=== PATIENT | female | born 1935 | race Caucasian/White ===

== ENCOUNTER → 2020-05-28 10:46 | Outpatient (CLI) | payer MEDICARE, SELFPAY ==
--- NOTE | 2020-05-28 10:55 | XR_ITS ---
PROCEDURE: XR ANKLE RT MIN 3V CLINICAL INDICATION: R FOOT PAIN COMPARISON: No exams were available for comparison FINDINGS: No fracture or dislocation. No lytic or blastic change. There is normal mineralization. The joint spaces are well-preserved. No significant degenerative/arthritic changes. No erosive changes evident. Other findings:Clips are present along the lower leg anteriorly IMPRESSION: No acute findings. Dictated by: Rafiq Shultz MD 05/28/2020 14:15 Electronically signed by Rafiq Shultz MD in [place] 05/28/2020 14:15
== END ==
PROVIDERS: PCP Family Medicine; Visit Provider Family Medicine
DX: M79.671 Pain in right foot (principal)
CPT/HCPCS: 73610

== ENCOUNTER → 2021-04-29 11:07 | Outpatient (CLI) | payer MEDICARE, SELFPAY ==
--- NOTE | 2021-04-29 11:51 | CT_ITS ---
PROCEDURE: CT ABDOMEN PELVIS WO/W CON CLINICAL INDICATION: LLQ ABD TENDERNESS, LLQ ABD PAIN COMPARISON: No exams were available for comparison TECHNIQUE: IV Contrast: 75ML Isovue 370 Oral Contrast None Axial images obtained with sagittal and coronal reformats. All CT scans at the facility use one or more dose reduction, viz: automated exposure control, ma/kV adjustment per patient size (including targeted exams where dose is matched to indication, i.e. head), or iterative reconstruction technique. FINDINGS: LOWER THORAX: There are mild atelectatic or fibrotic changes in the right middle lobe ABDOMEN & PELVIS: The liver, spleen, adrenal glands, and pancreas have an unremarkable appearance. Status post cholecystectomy. There is mild biliary ectasia with common bile duct measuring 7 mm and the common hepatic duct at 11 mm and could be due to reservoir effect from the prior cholecystectomy. There is an 8 mm hyperdense nodule along the posterior aspect of the right kidney which is indeterminate measuring 60 Hounsfield units. There are bilateral renal cysts. The largest cystic area projects along the medial aspect of the left kidney superiorly measuring 4.4 x 1.8 cm. No renal or ureteral calculi. No hydronephrosis. The no intestinal obstruction or free air is evident. No evidence of appendicitis. There is a moderate amount of retained colonic feces. The uterus is retroverted. There has been prior colon surgery with anastomosis at the rectosigmoid region. There is a mild amount of retained colonic feces with scattered colonic diverticula. No evidence of diverticulitis. No pelvic mass or abnormal fluid collection. Degenerative changes are present in the lumbar spine with mild lumbar scoliosis convex left and thoracic scoliosis convex right. IMPRESSION: There is a moderate amount of retained colonic feces. No intestinal obstruction or free air. There are few scattered colonic diverticula with no evidence of diverticulitis. No renal or ureteral calculi. Bilateral renal cyst with indeterminate 8 mm lesion of the right kidney possibly due to a hyperdense cyst. Ultrasound may confirm. Prior cholecystectomy with mild biliary ectasia Dictated by: Rafiq Shultz MD 04/29/2021 13:12 Rafiq Shultz MD in [place] 04/29/2021 13:12
[2021-04-29 12:05] LABS: Blood Urea Nitrogen 10 mg/dl (7-17); Estimated Glomerular Filt Rate 80 ml/min (>60); GFR (African American) 96 ML/MIN (>60)
== END ==
PROVIDERS: PCP Family Medicine; Visit Provider Family Medicine
DX: R10.32 Left lower quadrant pain (principal); R10.824 Left lower quadrant rebound abdominal tenderness
CPT/HCPCS: 36415; 74178; 82565; 84520; Q9967

== ENCOUNTER → 2021-05-13 12:27 | Outpatient (CLI) | payer MEDICARE, SELFPAY ==
--- NOTE | 2021-05-13 12:34 | XR_ITS ---
PROCEDURE: XR LUMBAR SPINE MIN 4V CLINICAL INDICATION: LUMBAR PAIN COMPARISON: No exams were available for comparison FINDINGS: Mild levoscoliosis. No acute fracture or subluxation. Severe degenerative changes L5-S1. Slight anterolisthesis of L4 on L5. Moderate bilateral facet spondylosis at L4-5 and L5-S1. Moderate to severe degenerative changes of the lower thoracic spine as well as L1-2 and L2-3 and moderate degenerative change of L3-4 and L4-5. SI joints are normal. IMPRESSION: Extensive diffuse degenerative changes of the lumbar spine, most pronounced at L5-S1. Slight anterolisthesis of L4 on L5. Moderate bilateral facet spondylosis of L4-5 and L5-S1. No acute fracture. Some degenerative change of the lower thoracic spine. Dictated by: Eder Cuello MD 05/13/2021 16:24 Eder Cuello MD in [place] 05/13/2021 16:24
== END ==
PROVIDERS: PCP Family Medicine; Visit Provider Family Medicine
DX: M54.5 Low back pain (principal)
CPT/HCPCS: 72110

== ENCOUNTER → 2021-06-10 16:14 | Outpatient (CLI) | payer MEDICARE, SELFPAY ==
--- NOTE | 2021-06-10 16:18 | XR_ITS ---
PROCEDURE: XR LUMBAR SPINE MIN 4V CLINICAL INDICATION: LOW BACK PAIN W/O SCIATICA, UNSPECIFIED, RIB PAIN COMPARISON: CR CXR CHEST(2 VIEWS-NOT PORTABLE) from 10/29/[address] ABDOMEN PELVIS WO/W CON from 04/29/2021 CR XR LUMBAR SPINE MIN 4V from 05/13/2021 FINDINGS: There is good alignment. Multilevel degenerative disc disease is present worse at the L5-S1 level and T12-L1. There is mild wedging of T12 and L1 with Sherman cave deformity of the superior endplate of L1. The con cave compression changes of the superior endplate of L1 may be very slightly worse and the minimal wedging of T12 also appears slightly worse from 05/13/2021. No retropulsion there is minimal anterolisthesis of L4 on L5 of 3 mm. There is diffuse vascular calcification. Facet arthritic changes are present at L4-L5 and S1. There is minimal lumbar scoliosis convex left IMPRESSION: Multilevel lumbar spondylosis with minimal wedging of T12 and L1 which may be very slightly worse. Dictated by: Rafiq Shultz MD 06/11/2021 07:11 Rafiq Shultz MD in [place] 06/11/2021 07:11
== END ==
PROVIDERS: PCP Family Medicine; Visit Provider Family Medicine
DX: R07.81 Pleurodynia (principal); M54.5 Low back pain
CPT/HCPCS: 72110

== ENCOUNTER 2023-11-17 13:17 | Observation (INO) | payer MEDICARE, SELFPAY ==
[2023-11-17] VITALS (9 sets, daily range): BP systolic 127–181; BP diastolic 54–84; PULSE 50–70; RESP 14–20; TEMP 36.4–37; O2SAT 95–98; BMI 22.6; BMI 20.4
--- NOTE | 2023-11-17 13:18 | PC.NURSE ---
PAtient arrives to ED with EMS stroke alert called at 1314; patient then went straight CT @ 1319. Patient back from CT in room at 1330; MD present at BS at this time. NIH exam completed at this time NIH score:0. FSBS: 96.
--- NOTE | 2023-11-17 13:18 | CT_ITS ---
FINAL REPORT TECHNIQUE: multiple axial CT images were performed from the foramen magnum to the vertex without enhancement. CLINICAL HISTORY: pre hospital stroke alert weakness COMPARISON: None FINDINGS: Is a lacunar infarct in the right thalamus. There is an area of apparent acute/subacute cytotoxic edema in the medial left occipital lobe best seen on images 24 through 28 of series 3. The ventricles are enlarged. There is moderate atrophy. There are extensive changes of chronic microvascular ischemia. There is no evidence of hemorrhage. No masses are identified. No extra-axial fluid is seen. There is abnormal opacification of the right cell of the sphenoid sinus consistent with chronic sinusitis. There is chronic left mastoiditis. IMPRESSION: Findings most consistent with subacute ischemic infarct medial left occipital lobe. Extensive chronic changes of microvascular ischemia. Chronic sphenoid and left mastoiditis. Reviewed, Interpreted and Dictated by Andrew Moreland MD Transcribed by Annie Garzon Authenticated and [facility]
--- NOTE | 2023-11-17 13:18 | CT_ITS ---
FINAL REPORT TECHNIQUE: thin section axial CT with and without IV contrast supplemented with multiplanar 3-D reconstruction of the head. This study was performed with techniques to keep radiation doses as low as reasonably achievable, (ALARA)individualized dose reduction techniques using automated exposure control or adjustment of mA and/or kV according to the patient's size were employed. CLINICAL HISTORY: pre hospital stroke alert FINDINGS: There is dense vascular calcification of the distal vertebral arteries bilaterally. There is no segmental stenosis or aneurysm. There is no evidence of large vessel occlusion. IMPRESSION: No acute arterial stenosis. Reviewed, Interpreted and Dictated by Andrew Moreland MD Transcribed by Ruchi Ortega Authenticated and [facility]
--- NOTE | 2023-11-17 13:18 | CT_ITS ---
FINAL REPORT TECHNIQUE: NASCET technique utilized for stenosis evaluation. CLINICAL HISTORY: pre hospital stroke alert FINDINGS: RIGHT CAROTID: There is [id number] calcification at the carotid bifurcation. No significant stenosis identified. LEFT CAROTID: There is mild to moderate calcification at the carotid bifurcation. No significant stenosis identified. VERTEBRALS: The vertebral arteries are codominant. No significant stenosis is present. There is abnormal opacification of the sphenoid sinus. IMPRESSION: No significant carotid stenosis. Sphenoid sinusitis. Reviewed, Interpreted and Dictated by Andrew Moreland MD Transcribed by Ruchi Ortega Authenticated and . [facility]
--- NOTE | 2023-11-17 13:18 | XR_ITS ---
FINAL REPORT CLINICAL HISTORY: dyspnea FINDINGS: SINGLE-VIEW CHEST There is mild cardiomegaly. The patient is status post median sternotomy. There are chronic changes at the bases. There is thoracic scoliosis convex to the right measuring 30 degrees. There is no pneumothorax. IMPRESSION: No acute cardiopulmonary process. Reviewed, Interpreted and Dictated by Andrew Moreland MD Transcribed by Ruchi Ortega Authenticated and [facility]
--- NOTE | 2023-11-17 13:31 | ECG_ITS ---
APPROVED REPORT Exam: Resting ECG HR:59 bpm ECG Measurements Heart Rate 59 AXES AZ 192 P 63 QRSd 95 QRS 74 QT 432 T 92 QTc 430 Conclusion SINUS BRADYCARDIA MODERATE ST DEPRESSION [0.05+ mV ST DEPRESSION] ABNORMAL ECG UNCONFIRMED REPORT Electronically signed by : Brad Traylor MD 11/18/2023 19:47:42
[2023-11-17 13:39] LABS: POC Glucose,Bedside 96 (70-110)
[2023-11-17 13:49] LABS: Chloride 101 mmol/L (98-107)
[2023-11-17 13:50] LABS: Sodium 131 mmol/L (136-145)
[2023-11-17 13:51] LABS: Basophils % 0.2 % (0.1-2.0); Eosinophils # 0.1 K/mm3 (0.0-0.4); Eosinophils % 0.9 % (0.1-12.0); Hemoglobin 13.3 g/dL (12.2-16.2); Lymphocytes # 2.2 K/mm3 (0.7-4.5); Lymphocytes % 27.7 % (10-50); Mean Corpuscular Volume 88.9 fl (81-99); Mean Platelet Volume 6.9 fl (7.4-10.4); Monocytes # 0.4 K/mm3 (0.1-1.0); Monocytes % 5.5 % (1.7-9.3); Neutrophils # 5.2 K/mm3 (1.8-7.8); Neutrophils % 65.6 % (37.0-80.0); Platelet Count 327 K/mm3 (142-424); Red Blood Count 4.16 M/mm3 (4.20-5.40); Red Cell Distribution Width 13.1 % (11.5-17.5)
[2023-11-17 13:52] LABS: Alanine Aminotransferase 13 U/L (12-78); Alkaline Phosphatase 58 U/L (38-126); Aspartate Amino Transferase 24 U/L (14-36); Bilirubin,Total 0.7 mg/dl (0.2-1.3); Blood Urea Nitrogen 10 mg/dl (7-17); Estimated Glomerular Filt Rate 117 ml/min (>60); GFR (African American) 142 ML/MIN (>60)
[2023-11-17 13:53] LABS: Albumin Level 3.4 g/dl (3.5-5.0); Albumin/Globulin Ratio 1.5 (1.1-1.8); Anion Gap 7.7 mEq/L (5-15); Calcium 7.2 mg/dl (8.4-10.2); Carbon Dioxide 25 mmol/L (22.0-30.0); Globulin 2.3 g/dL (1.3-3.2); Glucose 84 mg/dl (74-100); Total Protein,Serum 5.7 g/dl (6.3-8.2)
--- NOTE | 2023-11-17 13:55 | HMH.EDGENADL ---
Discharge Plan Disposition Patient Disposition: Admitted Referrals Follow up/Referrals: Kathy Wolfe MD [Primary Care Provider] - See instructions Clinical Impressions Clinical Impression: Encephalopathy, Hypokalemia, Acute CVA (cerebrovascular accident) Discharge ED Provider: Chema Antunez General Adult HPI General Chief complaint: Neuro Symptoms/Deficit Stated complaint: Stroke Alert Time Seen by Provider: 11/17/23 13:18 Mode of Arrival: EMS Source of Information: Patient, Relative and EMS Limitations: No Limitations Description of Symptoms (Recalled from ER Triage Doc. by RN): Presents to ED via EMS for possible stroke. EMS states when they arrived family members state she was slurring her words and was drooling . EMS states it was noted that patient had right sided facial droop. Last known normal was noted to be approx. [id number] last night. EMS reports patient was able to ambulated to the stretcher. History of Present Illness HPI narrative: Patient is an 88-year-old female with chronic dementia who is brought in by EMS for concern for a stroke. Stroke alert was called prehospital the patient went directly to the CAT scan her for a noncontrasted CT of the head and CT angio of the head neck prior to my evaluation. History from EMS is that there was potentially drooling and slurred speech that began yesterday evening around 6 to 7 PM according to patient's . My initial evaluation of the patient was after she returned from CT scanner she denies any complaints specifically any pain. Patient's and son are in the room shortly after my arrival and they states she has been a little bit more lethargic than normal lately and that yesterday evening around 6 to 7 PM they noticed that she was drooling and they were concerned about possible right-sided facial droop. They state at the moment that she is at her baseline and they agreed that she has no neurologic deficits at the moment. No other symptoms have preceded today's episode. Related Data Allergies Allergy/AdvReac Type Severity Reaction Status Date / Time NO KNOWN ALLERGIES Allergy Uncoded 11/16/17 14:52 [facility] Disclaimer: The information contained in this section may have been updated after the patient was seen, as this information can be updated by other users. Social History Smoking Status: Never smoker alcohol intake: never current occupational status: other Travel in the last 8 weeks: None ROS Obtained: Yes All systems reviewed & no additional complaints except as documented Physical Exam General General appearance: alert Respiratory Respiratory exam: Present normal lung sounds bilaterally; Absent respiratory distress Cardiovascular Cardiovascular exam: Present regular rate; Absent tachycardia Abdominal Exam Abdominal exam: Present soft; Absent distention or tenderness Neurological Exam Neurological exam: Present alert, CN II-XII intact and other (Normal cnfgop-qc-wabn bilaterally and hgio-dm-skkb bilaterally patient is oriented to herself and to location but not to time which is her baseline specifically no evidence of any facial droop or drooling at the moment); Absent motor sensory deficit Medical Decision Making [place] Inquiry Pt receiving controlled substance: No Vital Signs: 11/17/23 13:17 11/17/23 14:01 11/17/23 14:31 Temperature 98.6 F Temperature Source Oral Pulse Rate 55 L 58 L Pulse Rate [Right] 60 Respiratory Rate 16 20 14 Blood Pressure 147/71 H 149/80 H Blood Pressure [Right Arm] 181/83 H Blood Pressure Mean [Right Arm] 115 Blood Pressure Source [Right Arm] Automatic Cuff Blood Pressure Position [Right Arm] Sitting 02 Sat by Pulse Oximetry 96 96 97 Oxygen Delivery Method Room Air Lab Data Lab results reviewed: Yes I reviewed the patient's lab results. Lab Results 11/17/23 13:25: WBC 8.0, RBC 4.16 L, Hgb 13.3, Hct 37.0, MCV 88.9, MCH 32.0 H, MCHC 36.0 H, RDW 13.1, Plt Count 32
[2023-11-17 13:57] LABS: Creatinine Clearance Estimated 36 mL/min (50-200); Potassium 2.7 mmoL/L (3.5-5.1)
[2023-11-17 13:58] LABS: Activated Partial Thrombo Time 28.8 seconds (22.8-30.6); INR 0.99 (0.9-1.1); Prothrombin Time 10.7 seconds (10.1-12.5)
[2023-11-17 14:06] LABS: Troponin I < 0.01 ng/ml (0.00-0.034)
--- NOTE | 2023-11-17 15:00 | PC.NURSE ---
Rounded on patient and family; warm blankets provided to both. Call light within reach of patient
[2023-11-17 15:14] LABS: Microscopic, Urine URINE MICROSCOPIC (MICROSCOPIC)
--- NOTE | 2023-11-17 15:16 | PC.NURSE ---
Spoke with TJ about patient admission
[2023-11-17 15:31] LABS: Appearance,Urine CLEAR (Clear); Bilirubin,Urine Negative (Negative); Blood, Urine Negative (Negative); Color,Urine YELLOW (Yellow); Glucose,Urine (UA) Negative (Negative); Ketones,Urine Negative (Negative); Leukocyte Esterase,Urine Negative (Negative); Nitrate,Urine Negative (Negative); Protein,Urine Negative (Negative); Urobilinogen,Urine 0.2 EU/dl (0.2)
--- NOTE | 2023-11-17 15:34 | PC.NURSE ---
checked on pt no needs at this time,call light at bs
--- NOTE | 2023-11-17 15:51 | PC.NURSE ---
Rounded on patient; call light within reach of patient
--- NOTE | 2023-11-17 15:52 | PC.NURSE ---
Called report to Nicole ALVAREZ
--- NOTE | 2023-11-17 16:00 | PC.NURSE ---
arrived by stretcher from ED
[2023-11-17 16:25] LABS: Bacteria,Urine 3+ /lpf; WBC,Urine Occasional #/hpf (0-3)
[2023-11-17 17:51] LABS: Troponin I < 0.01 ng/ml (0.00-0.034)
--- NOTE | 2023-11-17 18:42 | PC.NURSE ---
PT IS ALERT TO NAME, BIRTHDAY, AND PLACE. HAS SOME INTERMITTENT CONFUSION. NEURO CHECK PREFORMED, NO DEFICITS NOTED. BILATERAL UPPER AND LOWER EXTREMITIES EQUAL IN STRENGTH. PT MEDS LOCKED IN DRAWER. WAS AT BEDSIDE. BRIEF PLACED ON PT D/T INCONTINENCE. BED ALARM ON SINCE HAS LEFT. NO OTHER NEEDS OR C/O NOTED. PT TOLERATED SUPPER WELL. VSS.
[2023-11-17 18:45] LABS: POC Glucose,Bedside 132 (70-110)
--- NOTE | 2023-11-17 19:43 | EXP.HP ---
History of Present Illness *Admission Date: 11/17/23 *Reason for visit:: stroke alert *History of present illness: This is 88-year-old female with PMHx of chronic dementia and HTN who is brought in by EMS for concern for a stroke. Data collected form ER documentaion and from EMS, due to patient history of dementia. Patient is currenlty alert and oriented by person only. EMS reported that there was potentially drooling and slurred speech that began yesterday evening around 6 to 7 PM according to patient's . He's not available at the time of this interview. Per family they were concerned about possible right-sided facial droop. They state at the moment that she is at her baseline and they agreed that she has no neurologic deficits. No other symptoms have preceded today's episode. Admitted for further work up and management. [facility] Disclaimer: The information contained in this section may have been updated after the patient was seen, as this information can be updated by other users. Medical History (Updated 11/18/23 @ 04:14 by Randell Jurado APRN) Hyperlipidemia Hypertension Knee arthropathy Surgical History (Updated 11/17/23 @ 16:23 by Liza Pepper RN) History of appendectomy Hx of CABG Social History (Updated 11/17/23 @ 15:08 by Chema Antunez MD) Smoking Status: Never smoker alcohol intake: never current occupational status: other Travel in the last 8 weeks: None Review of Systems Review of Systems Review of systems:: unable to obtain Meds Home Medications and Allergies Home Medications Medication Instructions Recorded Confirmed Type atenolol 50 mg tablet 50 mg PO DAILY 11/17/23 11/17/23 History lisinopril 20 20 tab PO DAILY 11/17/23 11/17/23 History mg-hydrochlorothiazide 12.5 mg tablet metoprolol succinate 25 mg 25 mg PO DAILY 11/17/23 11/17/23 History tablet,extended release 24 hr simvastatin 40 mg tablet 40 mg PO HS 11/17/23 11/17/23 History New Prescriptions to Start Prescriptions: Allergies Allergy/AdvReac Type Severity Reaction Status Date / Time NO KNOWN ALLERGIES Allergy Uncoded 11/16/17 14:52 Exam Data for Last 24 hours Vital signs and Labs for Last 24 Hours: Temp Pulse Resp BP Pulse Ox O2 Del Method 97.6 F 70 16 155/54 H 95 Room Air 11/17/23 16:16 11/17/23 18:37 11/17/23 16:16 11/17/23 16:16 11/17/23 16:16 11/17/23 18:40 Laboratory Results - last 24 hr 11/17/23 13:25: WBC 8.0, RBC 4.16 L, Hgb 13.3, Hct 37.0, MCV 88.9, MCH 32.0 H, MCHC 36.0 H, RDW 13.1, Plt Count 327, MPV 6.9 L, Neut % (Auto) 65.6, Lymph % (Auto) 27.7, [place] % (Auto) 5.5, Eos % (Auto) 0.9, Baso % (Auto) 0.2, Neut # (Auto) 5.2, Lymph # (Auto) 2.2, [place] # (Auto) 0.4, Eos # (Auto) 0.1, Baso # (Auto) 0.0, PT 10.7, INR 0.99, APTT 28.8, Sodium 131 L, Potassium 2.7 L*, Chloride 101, Carbon Dioxide 25, Anion Gap 7.7, BUN 10, Creatinine 0.50 L, Estimated Creat Clear 36, Estimated GFR 117, Est GFR ( Amer) 142, Glucose 84, Calcium 7.2 L, Total Bilirubin 0.7, AST 24, ALT 13, Alkaline Phosphatase 58, Troponin I < 0.01, Total Protein 5.7 L, Albumin 3.4 L, Globulin 2.3, Albumin/Globulin Ratio 1.5 11/17/23 13:29: POC Glucose 96 11/17/23 15:07: Urine Color Yellow, Urine Appearance Clear, Urine pH 7.0, Ur Specific [place] 1.010, Urine Protein Negative, Urine Glucose (UA) Negative, Urine Ketones Negative, Urine Blood Negative, Urine Nitrate Negative, Urine Bilirubin Negative, Urine Urobilinogen 0.2, Ur Leukocyte Esterase Negative, Urine RBC None, Urine WBC Occasional, Ur Squamous Epith Cells None, Urine Bacteria 3+ 11/17/23 17:01: Troponin I < 0.01 11/17/23 18:38: POC Glucose 132 H I & O for Last 24 hours: Intake & Output 11/14/23 11/15/23 11/16/23 11/17/23 23:59 23:59 23:59 23:59 Intake Total 240 / 240 Balance 240 / 240 Weight 52.305 kg Constitutional Constitutional: no acute distress and cooperative *Routine HEENT Exam Head: Present normocephalic and
--- NOTE | 2023-11-17 19:51 | PC.NURSE ---
Pt having moments of confusion and getting out of bed without assistance. Pt bed alarm on and working. attempts to reorient pt unsuccessful.
[2023-11-17 19:52] LABS: Troponin I 0.01 ng/ml (0.00-0.034)
[2023-11-17 20:11] LABS: POC Glucose,Bedside 95 (70-110)
[2023-11-18] VITALS: BP 116/67; PULSE 60; PULSE 64; RESP 17; TEMP 36.7; O2SAT 99
[2023-11-18 04:00] VITALS: BP 112/58; PULSE 56; PULSE 60; RESP 17; TEMP 37; O2SAT 93; BMI 20.9
--- NOTE | 2023-11-18 04:49 | PC.NURSE ---
Pt is alert to self and has been confused for a most part of the shift. Pt continues to get out of bed without assistance. Alarm is on and working properly for Pt safety. Pt ambulates to BR well with the assistance of staff x1. Pt has not required insulin coverage this shift thus far. Pt is resting well at this time. Needs assessed at this time.
[2023-11-18 05:19] LABS: POC Glucose,Bedside 101 (70-110)
[2023-11-18 07:28] LABS: Chloride 97 mmol/L (98-107)
[2023-11-18 07:29] LABS: Potassium 4.2 mmoL/L (3.5-5.1); Sodium 130 mmol/L (136-145)
[2023-11-18 07:31] LABS: Blood Urea Nitrogen 11 mg/dl (7-17); Creatinine Clearance Estimated 34 mL/min (50-200); Estimated Glomerular Filt Rate 95 ml/min (>60); GFR (African American) 115 ML/MIN (>60)
[2023-11-18 07:32] LABS: Anion Gap 9.2 mEq/L (5-15); Basophils % 0.4 % (0.1-2.0); Calcium 8.8 mg/dl (8.4-10.2); Carbon Dioxide 28 mmol/L (22.0-30.0); Eosinophils # 0.1 K/mm3 (0.0-0.4); Eosinophils % 1.5 % (0.1-12.0); Glucose 93 mg/dl (74-100); Hematocrit 36.3 % (37.0-47.0); Lymphocytes # 2.4 K/mm3 (0.7-4.5); Lymphocytes % 31.4 % (10-50); Mean Corpuscular HGB Conc 35.7 g/dL (31.8-35.4); Mean Corpuscular Hemoglobin 31.9 pg (27.0-31.2); Mean Corpuscular Volume 89.3 fl (81-99); Monocytes # 0.6 K/mm3 (0.1-1.0); Monocytes % 7.7 % (1.7-9.3); Neutrophils # 4.5 K/mm3 (1.8-7.8); Neutrophils % 58.9 % (37.0-80.0); Platelet Count 308 K/mm3 (142-424); Red Blood Count 4.07 M/mm3 (4.20-5.40); Red Cell Distribution Width 13.3 % (11.5-17.5); White Blood Count 7.7 K/mm3 (4.8-10.8)
--- NOTE | 2023-11-18 07:52 | MR_ITS ---
FINAL REPORT CLINICAL HISTORY: RULE OUT STROKE COMPARISON: None FINDINGS: Multi planar MR imaging was obtained through the brain without contrast. The midline structures appear intact. There is moderate abnormal signal in the deep white matter bilaterally. There is abnormal restricted diffusion involving the cortex of the medial left occipital lobe well-seen on images 12 through 14 of series 3.2. There are punctate areas of restricted diffusion involving the posterior left left frontal cortex and subcortical white matter. Focus within the posterior right sanford radiata is well seen on images 17 through 20 of series 3.2. The visualized paranasal sinuses demonstrate normal signal voids. The seventh and eighth nerve root complexes are intact. IMPRESSION: Multifocal acute ischemia with a focus of cortical ischemia in the medial left occipital lobe, punctate cortical foci abnormal signal posterior left frontal lobe, and punctate deep white matter focus in the left frontal and right parietal regions. Reviewed, Interpreted and Dictated by Andrew Moreland MD Transcribed by Annie Garzon Authenticated and [facility]
[2023-11-18 08:00] VITALS: BP 142/48; PULSE 55; RESP 16; TEMP 36.8; O2SAT 95
--- NOTE | 2023-11-18 09:56 | HMH.OTEV ---
OT Inpatient Evaluation Rehab OT IP Evaluation Start: 11/17/23 18:22 Freq: ONCE Status: Active Protocol: Document 11/18/23 09:50 [facility] (Rec: 11/18/23 09:56 [facility] [id number]) Rehab OT IP Assessment Subjective History Pt oriented x 2 on arrival. Pt's present and supportive during therapy evaluation. Pt admitted on due to possible CVA. This is 88-year-old female with PMHx of chronic dementia and HTN who is brought in by EMS for concern for a stroke. Data collected form ER documentaion and from EMS, due to patient history of dementia. Patient is currenlty alert and oriented by person only. EMS reported that there was potentially drooling and slurred speech that began yesterday evening around 6 to 7 PM according to patient's . He's not available at the time of this interview. Per family they were concerned about possible right-sided facial droop. They state at the moment that she is at her baseline and they agreed that she has no neurologic deficits . No other symptoms have preceded today's episode. Prior to being in the hospital , pt lived at home with her . reports she is normally able to dress herself and shower herself. However, he completes all IADLS. She does use a cane during ambulation. If she has to go out in the community she does use a wheelchair. Subjective I just feel tired. Objective Patient Orientation Person,Birthday Right Upper Extremity Gross ROM Min Limitation <25% Left Upper Extremity Gross ROM WFL Shoulder ROM Limitations Muscle Weakness Elbow ROM Limitations Muscle Weakness Wrist Limitations of Range of Motion Muscle Weakness Bed Mobility bed mobility-s
--- NOTE | 2023-11-18 10:11 | HMH.PTEV ---
Physical Therapy Evaluation Rehab PT IP Evaluation Start: 11/17/23 18:20 Freq: ONCE Status: Active Protocol: Document 11/18/23 10:00 KIMBERLEY (Rec: 11/18/23 10:11 KIMBERLEY [id number]) Subjective/History History History Pt is an 88 y/o female who presented to [facility] via EMS on with concern for stroke . Per history & physical note, jonas collected form ER documentaion and from EMS, due to patient history of dementia. Patient is currenlty alert and oriented by person only. EMS reported that there was potentially drooling and slurred speech that began yesterday evening around 6 to 7 PM according to patient's . He's not available at the time of this interview. Per family they were concerned about possible right-sided facial droop. They state at the moment that she is at her baseline and they agreed that she has no neurologic deficits . No other symptoms have preceded today's episode. Admitted for further work up and management. PMHx: dementia, HTN, HLD Subjective Subjective Pt's present at bedside and assisted with providing subjective history. Pt's reports the patient has had dementia for years and he assists with her care. Pt's reports she is able to walk around their home with a cane, states she uses a wheelchair to go to [facility] or out in the community . Pt's reports he would assist her with ADLs and iADLs. New diagnosis of cancer in past 12 No months? Rehab PT IP Eval Objective Appearance Patient Behavior Cooperative Patient Orientation Name Difficulty following instructions mild Speech Pattern Baseline Function Am
--- NOTE | 2023-11-18 10:48 | HMH.PHAINT1 ---
Pharmacy Intervention Comments: Verified home med list with patient and at bedside and with external pharmacy list.
[2023-11-18 11:45] VITALS: BP 110/62; PULSE 65; RESP 16; TEMP 36.4; O2SAT 96
[2023-11-18 12:00] VITALS: PULSE 50
[2023-11-18 13:25] LABS: POC Glucose,Bedside 107 (70-110)
--- NOTE | 2023-11-18 14:23 | EXP.EVENT.NO ---
Patient and do not want to wait for Echo with bubble study, and wants to do it as outpatient, will order as outpatient
--- NOTE | 2023-11-18 14:38 | CARE MANAGER ---
Addendum entered by Dyan Hahn RN 11/19/23 14:02: [facility] was unable to accept referral. [facility] is willing to accept and able to start services on 11/24/23. Original Note: Met with patient and spouse to discuss discharge planning. They are agreeable to services and signed patient choice for [facility]. Order/clinical faxed.
--- NOTE | 2023-11-18 14:40 | EXP.DC.SUM ---
General Admission date:: 11/17/23 HPI HPI HPI: This is 88-year-old female with PMHx of chronic dementia and HTN who is brought in by EMS for concern for a stroke. Data collected form ER documentaion and from EMS, due to patient history of dementia. Patient is currenlty alert and oriented by person only. EMS reported that there was potentially drooling and slurred speech that began yesterday evening around 6 to 7 PM according to patient's . He's not available at the time of this interview. Per family they were concerned about possible right-sided facial droop. They state at the moment that she is at her baseline and they agreed that she has no neurologic deficits. No other symptoms have preceded today's episode. Admitted for further work up and management. Hospital Course Hospital Course Hospital Course: Patient was seen and evaluated at the bedside on the day of discharge. Patient is stable for discharge. Patient wishes to be discharged. All patient questions were answered and patient was given time to ask questions. Patient was discharged in stable condition. Patient understands that she can return to ER in case of any sudden changes in health. Total time spent on DC - 38 mins 88-year-old female with PMHx of chronic dementia and HTN who is brought in by EMS for concern for a stroke. Data collected form ER documentaion and from EMS, due to patient history of dementia. Patient is currenlty alert and oriented by person only. EMS reported that there was potentially drooling and slurred speech that began yesterday. on Arrival patient underwent to CT of the head that showed subacute ischemic infarct on the occipital lobe. patient remains with not neurologic deficit. NIHH zero. GSC 14. discussed with ER. labs are unremarkable for others severe hypokalemia. Decision for admission was made. 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 on CT : - Hypokalemia, likely poor intake: improved Exam Data for Last 24 hours Vital signs and Labs for Last 24 Hours: Temp Pulse Resp BP Pulse Ox O2 Del Method 97.5 F L 50 L 16 110/62 96 Room Air 11/18/23 11:45 11/18/23 12:00 11/18/23 11:45 11/18/23 11:45 11/18/23 11:45 11/18/23 13:00 Laboratory Results - last 24 hr 11/17/23 15:07: Urine Color Yellow, Urine Appearance Clear, Urine pH 7.0, Ur Specific [place] 1.010, Urine Protein Negative, Urine Glucose (UA) Negative, Urine Ketones Negative, Urine Blood Negative, Urine Nitrate Negative, Urine Bilirubin Negative, Urine Urobilinogen 0.2, Ur Leukocyte Esterase Negative, Urine RBC None, Urine WBC Occasional, Ur Squamous Epith Cells None, Urine Bacteria 3+ 11/17/23 17:01: Troponin I < 0.01 11/17/23 18:38: POC Glucose 132 H 11/17/23 19:05: Troponin I 0.01 11/17/23 20:04: POC Glucose 95 11/18/23 05:11: POC Glucose 101 11/18/23 06:49: WBC 7.7, RBC 4.07 L, Hgb 13.0, Hct 36.3 L, MCV 89.3, MCH 31.9 H, MCHC 35.7 H, RDW 13.3, Plt Count 308, MPV 8.0, Neut % (Auto) 58.9, Lymph % (Auto) 31.4, [place] % (Auto) 7.7, Eos % (Auto) 1.5, Baso % (Auto) 0.4, Neut # (Auto) 4.5, Lymph # (Auto) 2.4, [place] # (Auto) 0.6, Eos # (Auto) 0.1, Baso # (Auto) 0.0, Sodium 130 L, Potassium 4.2 D, Chloride 97 L, Carbon Dioxide 28, Anion Gap 9.2, BUN 11, Creatinine 0.60, Estimated Creat Clear 34, Estimated GFR 95, Est GFR ( Amer) 115, Glucose 93, Calcium 8.8 11/18/23 13:18: POC Glucose 107 I & O for Last 24 hours: Intake & Output 11/15/23 11/16/23 11/17/23 11/18/23 23:59 23:59 23:59 23:59 Intake Total 240 / 360 470 / 470 Output Total 0 / 0 0 / 0 Balance 240 / 360 470 / 470 Weight 52.305 kg 53.52 kg Constitutional Constitutional: no acute distress *Routine HEENT Exam Head: Present normocephalic Eye: Present EOMI and PERRL ENT: Present mucous membranes moist *Routine Neck Exam Neck
--- NOTE | 2023-11-18 14:42 | PC.NURSE ---
Attempted to discharge patient but patients wouldn't wait to go over paperwork. He was standing at the door with the patient next to him when I arrived to the room with discharge papers. Pt was unsteady on her feet so I assisted her back to the bed. I explained we would get a wheel chair to take the patient down. He stated he wasn't waiting and was ready leave now. By this time Skylar, PETRONA was in the room with a wheel chair and assisted pt to the wheel chair. Ramo Hawkins RN was in room as well and had gathered the patients belongings and returned them to her. Chema Diaz RN had already gathered pt's home meds and returned them.
--- NOTE | 2023-11-19 11:43 | CARE MANAGER ---
Contacted patient's related to hospital discharge. He denies any questions or concerns. He is aware of ASA and appt with Dr. Wolfe. Denies questions or concerns. ANTONIO Ackerman
--- NOTE | 2023-11-21 17:59 | PC.NURSE ---
Addendum entered by Halina Humphreys RN 11/21/23 20:32: [id number] supervisor sleeping bag department contacted MD Carter with my present notifying him of urine culture results, states he will look the pt up and give further care as needed Original Note: Contacted pt about urine results, aware medicine needs to be picked up from pharmacy. urine culture results show e/coli, pt was admitted and DC from 2nd floor, unable to call in any antibiotics for the results due to the holiday schedule of pharmacy and no availability to leave a message at pharmacy. MD Mansfield aware, unable to send a script over for anything due to the pt being DC from and the computer wont allow it, Contacted house per for culture to be fu with who is currently working on 2nd floor to continue care that is needed for this pt at this time. Will fu with athol about what further care is needed after discussing with .
== END 2023-11-18 14:35 | disposition home or self-care (01) ==
LOC: ER 15:06 → 2ND 15:24
PROVIDERS: Admitting Provider Internal Medicine; Emergency Provider Student in an Organized Health Care Education/Training Program; PCP Family Medicine; Visit Provider Internal Medicine
DX: G93.40 Encephalopathy, unspecified (principal); I63.9 Cerebral infarction, unspecified; E87.6 Hypokalemia; I10 Essential (primary) hypertension; Z79.899 Other long term (current) drug therapy; Z95.1 Presence of aortocoronary bypass graft
CPT/HCPCS: 36415; 70450; 70496; 70498; 70551; 71045; 80048; 80053; 81001; 82962; 84484; 85025; 85610; 85730; 87086; 93005; 97162; 97166; 97530; 97535; 99291; G0378; J2405; Q9967